=== PATIENT | male | born 1990 | race Caucasian/White ===

== ENCOUNTER 2019-09-16 21:25 | Inpatient (IN) | payer MEDICAID, OTHER ==
[~2019-09-16] VITALS: Ht 182.9 cm; Wt 134.6 kg
[2019-09-16 22:43] LABS: Basophils # (auto) 0 10 ^3/uL (0-0.2); Basophils % (auto) 0.4 % (0.0-2.0); Eosinophils # (auto) 0.3 10 ^3/uL (0-0.8); Eosinophils % (auto) 2.6 % (0.0-7.0); Hematocrit 44.1 % (41.0-53.0); Hemoglobin 14.7 g/dL (13.5-17.5); Lymphocytes # (auto) 1.7 10 ^3/uL (0.4-5.4); Lymphocytes % (auto) 15.8 % (10.0-50.0); Mean Corpuscular Hemoglobin 29.4 pg (28.0-32.0); Mean Corpuscular Hgb Conc. 33.3 g/dL (32.0-36.0); Mean Corpuscular Volume 88.1 fL (80.0-100.0); Monocytes # (auto) 0.8 10 ^3/uL (0-1.3); Monocytes % (auto) 7.7 % (0.0-12.0); Neutrophils # (auto) 7.9 10 ^3/uL (1.6-8.6); Neutrophils % (auto) 73.5 % (37.0-80.0); Nucleated Red Blood Cells % 0.2 %; Platelet Count (auto) 248 10^3/uL (140-450); Red Cell Distribution Width 13.7 % (11.8-14.3); White Blood Cell 10.7 10^3/uL (4.4-10.8)
[2019-09-16 22:58] LABS: INR 1.11 (0.9-1.15); Partial Thromboplastin Time 29.1 sec (23.64-32.05)
[2019-09-16 23:03] LABS: Albumin 3.5 g/dL (3.4-5.0); Anion Gap 6 (5-15); Blood Urea Nitrogen 11 mg/dL (7-18); Calcium 8.4 mg/dL (8.5-10.1); Carbon Dioxide 26 mmol/L (21-32); Chloride 107 mmol/L (98-107); GFR African American 115 mL/min; GFR Non-African American 95 mL/min; Glucose 81 mg/dL (74-106); Magnesium 2.3 mg/dL (1.6-2.6); Potassium 3.6 mmol/L (3.5-5.1); Sodium 139 mmol/L (136-145)
[2019-09-16 23:08] LABS: Alanine Aminotransferase 20 U/L (16-61); Alkaline Phosphatase 86 U/L (45-117); Aspartate Aminotransferase 12 U/L (15-37); Bilirubin, Total 0.5 mg/dL (0.2-1.0); Total Protein 8.1 g/dL (6.4-8.2)
[2019-09-17] MEDS ORDERED: levoFLOXacin 750MG 150 ML IV ONE (00:45)
[2019-09-17] MEDS ORDERED: PROMETHAZINE HCL 6.25 MG/5 ML ORAL SYRUP PO ONE (00:45)
[2019-09-17] MEDS ORDERED: LORazepam 0.5 MG TAB PO PRN (02:45)
[2019-09-17] MEDS ORDERED: ACETAMINOPHEN 325 MG TAB PO PRN (02:45)
[2019-09-17] MEDS ORDERED: ACETAMINOPHEN 500 MG TAB PO PRN (02:45)
[2019-09-17] MEDS ORDERED: HYDROcodone-ACET 5/325MG TAB PO PRN (02:45)
[2019-09-17] MEDS ORDERED: DOCUSATE SOD 100 MG CAP PO PRN (02:45)
[2019-09-17] MEDS ORDERED: ONDANSETRON HCL 4 MG/2 ML VIAL IV PRN (02:45)
[2019-09-17] MEDS ORDERED: MORPHINE SULF INJ 2 MG/ML SYRINGE 1ML IV PRN (02:45)
[2019-09-17 03:40] VITALS: BP 120/55
--- NOTE | 2019-09-17 03:40 | NUR ---
Telemetry admit from [facility] admitted to Telemetry unit. Patient oriented to SINDHU BEE RN primary RN, unit, room, bed, and unit policies regarding patient care and visiting hours. Patient now on continuous telemetry monitoring, tele box # 9 and telemetry reading on arrival to unit is sinus rhythm at 70 beats per minute. Patient placed on bedside oxygen at 8 liters via face mask, weighed by bedscale and encouraged to call if they need something. All questions and concerns addressed, patient verbalized understanding. COVID [address] Bed in lowest locked position, side rails up x2, call light within reach. Will round every hour and as needed and continue to monitor. Addendum: 09/17/19 at 0511 by SINDHU BEE RN RN ADDITION: Levaquin administered as ordered, patient tolerated well. Will continue to monitor.
[2019-09-17 04:38] LABS: Urine Bacteria NONE SEEN /hpf (None Seen); Urine Blood Negative /uL (Negative); Urine Mucus FEW (None Seen); Urine Specific Gravity 1.036 (1.001-1.035); Urine WBC 1 /hpf (0 - 3)
[2019-09-17] MEDS ORDERED: MELA3TAB27 PO (05:07)
[2019-09-17] MEDS ORDERED: CLON-707 PO (05:07)
[2019-09-17] MEDS ORDERED: CLON0.5T10 PO (05:07)
[2019-09-17] MEDS ORDERED: SERT-274 PO (05:07)
[2019-09-17] MEDS: ALBUTEROL SULF HFA 90MCG INH 200DOSE IN SCH ×2 (06:25→14:00)
--- NOTE | 2019-09-17 06:45 | NUR ---
Closing Note Patient lying in bed, eyes closed, respirations even and unlabored, appears asleep. Patient awakens to name and touch. Bed in lowest locked position, side rails up x2, call light within reach. No s/s of distress. Will endorse care to dayshift RN.
--- NOTE | 2019-09-17 08:00 | NUR ---
ASSESSMENT NOTE PT IS ALERT ORIENTED X4, RESTING IN BED COMFORTABLY, PT IS BIG AND TALL, LARGE SOFT ABDOMEN NOTED, ABLE TO VERBALIS HIS DEMANDS, SELF REPOSITION, PAIN 0/10 AT THIS TIME, OXYGEN 8L MASK SAT AT 96%, PAIN 0/10, CALL LIGHT WITHIN REACH
--- NOTE | 2019-09-17 08:30 | NUR ---
DEISY CALLED, SISTER IN [facility], FOLLOWING UP ON PT
[2019-09-17 08:42] VITALS: BP 111/65
--- NOTE | 2019-09-17 09:00 | NUR ---
INCENTIVE SPIROMETER GIVEN TO PT, EDUCATED PT HOW TO USE IT AND WHY, PT WAS ABLE TO DEMONSTRATED BACK
[2019-09-17] MEDS: ENOXAPARIN SOD 40 MG/0.4 ML SYRINGE SC SCH (09:16)
--- NOTE | 2019-09-17 09:30 | NUR ---
DR KRISHNA CALLED FOLLOWING UP ON PT
[2019-09-17] MEDS ORDERED: ASCORBIC ACID 1,000 MG TAB PO SCH (10:00)
[2019-09-17] MEDS ORDERED: DOXYCYCLINE 100 MG TAB/CAP PO SCH (10:00)
[2019-09-17] MEDS ORDERED: ZINC SULFATE 220mg CAP or TAB PO SCH (10:00)
--- NOTE | 2019-09-17 11:02 | NUR ---
PAGE DR ROSENBERG REGARDING COVID TEST IS NEGATIVE
--- NOTE | 2019-09-17 11:05 | NUR ---
PINKY CHARGE NURSE MADE AWARE OF THE TEST RESULTS
--- NOTE | 2019-09-17 11:10 | NUR ---
PATIENT MADE AWARE OF THE TEST RESULTS THAT ITS NEGATIVE, ALSO SPOKE WITH PATIENT'S FATHER MADE AWARE THAT THE RESULTS IS NEGATIVE AND PT WILL BE TRANSFER TO ROOM 272B
--- NOTE | 2019-09-17 11:15 | NUR ---
Report Assumed patient care from LEIGH Verma.
--- NOTE | 2019-09-17 11:16 | NUR ---
REPORT GIVEN TO JOSE RAFAEL ABRAHAM, PT IS GOING TO ROM 272B. CONTINUE CARE
--- NOTE | 2019-09-17 11:58 | NUR ---
PT TRANSFER OUT OF THE COVID UNIT WITH ALL HIS BELONGING BAG AND CELL PHONE, PT AWARE THAT HE IS GOING TO ROOM 272 B
--- NOTE | 2019-09-17 11:58 | NUR ---
TRANSFER PT TO ROOM 272B WITH 8L OXYGEN, NO DISTRESS NOTED, CONTINUE CARE
--- NOTE | 2019-09-17 11:59 | NUR ---
DR KRISHNA IS HERE AWARE OF PATIENT'S TRANSFER WITH STAT ORDERS OF CHEST CT WITHOUT CONTRAST
--- NOTE | 2019-09-17 12:00 | NUR ---
Patient Arrived Patient arrived to unit. Covid negative. Patient currently laying in bed, no signs of distress at this time. Respirations even and unlabored on 8L simple mask. Safety precautions in place. Call light within reach, patient encouraged to call PRN. Will continue to monitor.
--- NOTE | 2019-09-17 12:29 | NUR ---
at Bedside Dr. Calhoun at bedside discussing plan of care with patient. New orders received.
--- NOTE | 2019-09-17 12:39 | NUR ---
Family Spoke with patient's mother, password confirmed. Family notified of room transfer. Reviewed patient home medications with patient's mother.
[2019-09-17 13:00] VITALS: BP 107/71
[2019-09-17] MEDS ORDERED: PROMETHAZINE-DM 5 ML ORAL SYRUP GT PRN (13:00)
[2019-09-17 13:16] LABS: Basophils # (auto) 0 10 ^3/uL (0-0.2); Basophils % (auto) 0.4 % (0.0-2.0); Eosinophils # (auto) 0.2 10 ^3/uL (0-0.8); Eosinophils % (auto) 2.4 % (0.0-7.0); Lymphocytes # (auto) 1.4 10 ^3/uL (0.4-5.4); Lymphocytes % (auto) 15.1 % (10.0-50.0); Mean Corpuscular Hemoglobin 29.2 pg (28.0-32.0); Mean Corpuscular Hgb Conc. 33.2 g/dL (32.0-36.0); Mean Corpuscular Volume 87.7 fL (80.0-100.0); Monocytes # (auto) 0.6 10 ^3/uL (0-1.3); Monocytes % (auto) 6.4 % (0.0-12.0); Neutrophils # (auto) 6.8 10 ^3/uL (1.6-8.6); Neutrophils % (auto) 75.7 % (37.0-80.0); Nucleated Red Blood Cells % 0.1 %; Platelet Count (auto) 235 10^3/uL (140-450); Red Blood Cells 4.78 10^6/uL (4.5-5.90); Red Cell Distribution Width 13.7 % (11.8-14.3)
[2019-09-17] MEDS ORDERED: IOHEXOL 350 MG/ML 100ML IJ ONE (13:23)
[2019-09-17 13:24] LABS: Albumin 3.4 g/dL (3.4-5.0); Magnesium 2.3 mg/dL (1.6-2.6); Potassium 3.9 mmol/L (3.5-5.1)
[2019-09-17 13:29] LABS: Cholesterol 193 mg/dL (< 200); HDL Cholesterol 37 mg/dL (40-59); LDL Cholesterol 143 mg/dL (< 100); Triglycerides 152 mg/dL (< 150)
[2019-09-17 13:33] LABS: BUN/Creatinine Ratio 10.5; Bilirubin, Total 0.5 mg/dL (0.2-1.0); CRP High Sensitivity 6.48 mg/dL (< 0.3); Total Protein 7.6 g/dL (6.4-8.2)
--- NOTE | 2019-09-17 13:35 | NUR ---
Off Unit Patient off unit for CT.
--- NOTE | 2019-09-17 13:49 | NUR ---
Patient Returned Patient returned to unit. No signs of distress at this time. Respirations even and unlabored. Will continue to monitor.
--- NOTE | 2019-09-17 13:59 | NUR ---
Returned Tele Returned tele box #9, tele security monitor aware.
--- NOTE | 2019-09-17 14:40 | NUR ---
Called For Tele Recalled for tele monitor for new tele box. Addendum: 09/17/19 at 1441 by JOSE RAFAEL REBOLLAR RN RN Spoke with vargas Cuevas tele box to be sent.
[2019-09-17 17:00] VITALS: BP 105/62
--- NOTE | 2019-09-17 17:30 | NUR ---
Family Spoke with sister, May, regarding update on patient status. Password confirmed.
[2019-09-17] MEDS ORDERED: PIPERACILLIN-TAZO 4.5GM 100 ML IV ONE (18:15)
--- NOTE | 2019-09-17 18:16 | NUR ---
Called Dietary Called dietary requesting new dinner tray. Patient states he is hungry but does not like gravy or cooked vegetables.
--- NOTE | 2019-09-17 18:35 | NUR ---
Lab Notified lab of sputum culture. equipment maint tech aware.
--- NOTE | 2019-09-17 19:30 | NUR ---
Opening Shift Note Assumed care of patient, awake and alert. A&Ox4. Patient laying down watching TV. No S/S of distress/SOB or pain. Safety measures maintained by keeping the bed locked in lowest position, 2 side rails up, personal items and call light within reach. Instructed on POC and to call for assist PRN, will continue to monitor for changes Q1hr and PRN.
[2019-09-17 22:00] VITALS: BP 101/62
[2019-09-17] MEDS: PIPERACILLIN-TAZOB 3.375GM 100 ML IV SCH (23:32)
--- NOTE | 2019-09-18 02:00 | NUR ---
Family Patient's mother updated on patient status. Password confirmed.
[2019-09-18 05:00] VITALS: BP 112/71
[2019-09-18] MEDS: PIPERACILLIN-TAZOB 3.375GM 100 ML IV SCH ×2 (05:25→12:06)
[2019-09-18 06:29] LABS: Basophils # (auto) 0 10 ^3/uL (0-0.2); Basophils % (auto) 0.6 % (0.0-2.0); Eosinophils # (auto) 0.3 10 ^3/uL (0-0.8); Hematocrit 42.4 % (41.0-53.0); Hemoglobin 14.2 g/dL (13.5-17.5); Lymphocytes # (auto) 1.6 10 ^3/uL (0.4-5.4); Lymphocytes % (auto) 20.4 % (10.0-50.0); Mean Corpuscular Hemoglobin 29.3 pg (28.0-32.0); Mean Corpuscular Hgb Conc. 33.3 g/dL (32.0-36.0); Mean Corpuscular Volume 87.8 fL (80.0-100.0); Monocytes # (auto) 0.5 10 ^3/uL (0-1.3); Monocytes % (auto) 6.8 % (0.0-12.0); Neutrophils # (auto) 5.5 10 ^3/uL (1.6-8.6); Neutrophils % (auto) 68.2 % (37.0-80.0); Nucleated Red Blood Cells % 0.2 %; Platelet Count (auto) 230 10^3/uL (140-450); Red Blood Cells 4.84 10^6/uL (4.5-5.90); Red Cell Distribution Width 13.4 % (11.8-14.3); White Blood Cell 8.1 10^3/uL (4.4-10.8)
[2019-09-18 06:49] LABS: Potassium 3.7 mmol/L (3.5-5.1)
[2019-09-18 06:55] LABS: Albumin 3.3 g/dL (3.4-5.0); BUN/Creatinine Ratio 10.4; Bilirubin, Total 0.5 mg/dL (0.2-1.0); Total Protein 7.7 g/dL (6.4-8.2)
--- NOTE | 2019-09-18 07:35 | NUR ---
Opening Shift Note Assumed care of patient, awake and alert.No S/S of distress/SOB or pain. Patient updated on POC and instructed to call for assistance as needed, patient verbalized understanding. Bed locked in lowest position, side rails up x2, call light within reach, safety measures in place. Will continue to monitor for changes Q1hr and PRN.
[2019-09-18 09:00] VITALS: BP 106/64
[2019-09-18] MEDS: levoFLOXacin 750MG 150 ML IV SCH (09:54)
[2019-09-18] MEDS: ENOXAPARIN SOD 40 MG/0.4 ML SYRINGE SC SCH (09:54)
[2019-09-18] MEDS ORDERED: FUROSEMIDE 20 MG/2 ML VIAL IV ONE (12:30)
[2019-09-18] MEDS ORDERED: CHOLECALCIFEROL (VITD3) 2,000 UNIT CAP PO ONE (12:30)
[2019-09-18] MEDS ORDERED: SODIUM CHLORIDE 0.9% 1,000 ML IV ONE (12:45)
[2019-09-18 13:00] VITALS: BP_SYST 94; BP_SYST 97; BP_DIAS 54; BP_DIAS 58
--- NOTE | 2019-09-18 13:00 | NUR ---
CHANELLE RESULTS NOW AVAILABLE IN [employer] AND REPORTED TO
--- NOTE | 2019-09-18 15:30 | NUR ---
[facility] POSITIVE IN [facility]. WILL UPDATE MD LEVIN.
[2019-09-18] MEDS ORDERED: methylPREDNISolone SOD SUCC 40 MG/ML VL IV ONE (15:45)
--- NOTE | 2019-09-18 16:28 | NUR ---
INCENTIVE SPIROMETER PATIENT PROVIDED WITH INCENTIVE SPIROMETER AND INSTRUCTED ON PROPER USE, INSTRUCTED TO USE Q1HR AND PRN. PATIENT PERFORMED DEMONSTRATION. WILL CONTINUE TO MONITOR.
[2019-09-18] MEDS: LINEZOLID 600MG TABLET PO SCH ×2 (16:30→22:24)
[2019-09-18 17:00] VITALS: BP 113/66
[2019-09-18] MEDS: ALBUTEROL SULF 2.5 MG/0.5ML(0.5%) NEB SOLN NEB SCH (19:10)
--- NOTE | 2019-09-18 19:20 | NUR ---
Opening Shift Note Assumed care of patient, awake and alert. Patient sitting up in bed. A&Ox4. Patient on 15L oxymizer. No S/S of distress/SOB or pain. Safety measures maintained by keeping the bed locked in lowest position, 2 side rails up, personal items and call light within reach. Instructed on POC and to call for assist PRN, will continue to monitor for changes Q1hr and PRN.
--- NOTE | 2019-09-18 19:21 | NUR ---
Respiratory note: CHANGED PT TO 15L OXYMIZER AT THIS TIME
[2019-09-18 19:48] VITALS: BP 113/66
[2019-09-18] MEDS ORDERED: methylPREDNISolone SOD SUCC 40 MG/ML VL IV SCH (22:00)
[2019-09-18] MEDS: MUPIROCIN 2% OINT 15gm or 22gm EACHNOSTRI SCH (22:23)
[2019-09-18 22:26] VITALS: BP 130/61
[2019-09-19 05:22] VITALS: BP 104/55
[2019-09-19 06:07] LABS: Basophils # (auto) 0 10 ^3/uL (0-0.2); Basophils % (auto) 0.1 % (0.0-2.0); Eosinophils # (auto) 0 10 ^3/uL (0-0.8); Eosinophils % (auto) 0.1 % (0.0-7.0); Hematocrit 43.9 % (41.0-53.0); Hemoglobin 14.6 g/dL (13.5-17.5); Lymphocytes % (auto) 8.7 % (10.0-50.0); Mean Corpuscular Hemoglobin 29.2 pg (28.0-32.0); Mean Corpuscular Hgb Conc. 33.3 g/dL (32.0-36.0); Mean Corpuscular Volume 87.5 fL (80.0-100.0); Monocytes # (auto) 0.3 10 ^3/uL (0-1.3); Monocytes % (auto) 2.4 % (0.0-12.0); Neutrophils % (auto) 88.7 % (37.0-80.0); Nucleated Red Blood Cells % 0.1 %; Platelet Count (auto) 284 10^3/uL (140-450); Red Blood Cells 5.01 10^6/uL (4.5-5.90); Red Cell Distribution Width 13.1 % (11.8-14.3); White Blood Cell 11.3 10^3/uL (4.4-10.8)
[2019-09-19] MEDS: ALBUTEROL SULF 2.5 MG/0.5ML(0.5%) NEB SOLN NEB SCH ×3 (06:08→19:27)
[2019-09-19 06:23] LABS: Calcium 8.8 mg/dL (8.5-10.1)
--- NOTE | 2019-09-19 07:25 | NUR ---
Opening Shift Note Assumed care of patient, awake and alert. No S/S of distress/SOB or pain. Patient updated on POC and instructed to call for assistance as needed, patient verbalized understanding. Bed locked in lowest position, side rails up x2, call light within reach, safety measures in place. Will continue to monitor for changes Q1hr and PRN.
[2019-09-19 09:00] VITALS: BP 112/59
[2019-09-19] MEDS: LINEZOLID 600MG TABLET PO SCH ×2 (09:09→21:23)
[2019-09-19] MEDS: levoFLOXacin 750MG 150 ML IV SCH (09:09)
[2019-09-19] MEDS: ENOXAPARIN SOD 40 MG/0.4 ML SYRINGE SC SCH (09:10)
[2019-09-19] MEDS: MUPIROCIN 2% OINT 15gm or 22gm EACHNOSTRI SCH ×2 (09:10→21:23)
[2019-09-19] MEDS: CHOLECALCIFEROL (VITD3) 2,000 UNIT CAP PO SCH (09:10)
[2019-09-19] MEDS: predniSONE 20 MG TAB PO SCH (09:17)
[2019-09-19] MEDS ORDERED: FUROSEMIDE 20 MG/2 ML VIAL IV SCH (10:00)
--- NOTE | 2019-09-19 10:00 | NUR ---
FAMILY AT BEDSIDE.
[2019-09-19 13:00] VITALS: BP 100/51
[2019-09-19] MEDS ORDERED: FUROSEMIDE 20 MG/2 ML VIAL IV ONE (14:00)
[2019-09-19] MEDS ORDERED: PIPERACILLIN-TAZO 4.5GM 100 ML IV ONE (14:15)
[2019-09-19 17:00] VITALS: BP 116/73
--- NOTE | 2019-09-19 19:30 | NUR ---
Opening Shift Note Assumed care of patient, awake and alert. A&Ox4. Patient laying in bed. No S/S of distress/SOB or pain. Safety measures maintained by keeping the bed locked in lowest position, 2 side rails up, personal items and call light within reach. Instructed on POC and to call for assist PRN, will continue to monitor for changes Q1hr and PRN.
--- NOTE | 2019-09-19 21:49 | NUR ---
SPOKE WITH PATIENT'S FAMILY MEMBER Spoke with patient's mom. Password was obtained. All questions/ concerns were answered at this time.
[2019-09-19 22:00] VITALS: BP 122/67
[2019-09-20] MEDS: PIPERACILLIN-TAZO 4.5GM 100 ML IV SCH ×3 (05:21→21:48)
[2019-09-20 06:00] VITALS: BP 128/61
[2019-09-20] MEDS: ALBUTEROL SULF 2.5 MG/0.5ML(0.5%) NEB SOLN NEB SCH ×3 (07:12→18:49)
--- NOTE | 2019-09-20 07:12 | NUR ---
RT NOTE: PT RECEIVED ON 15L OXYMIZER WITH SPO2 95%. FLOW DECREASED TO 10L. AT 8L SPO2 DROPPED TO 91%. NO SIGNS OF DISTRESS NOTED AT THIS TIME. PT REFUSED TX. WILL CONTINUE TO MONITOR.
--- NOTE | 2019-09-20 07:25 | NUR ---
Opening Shift Note Assumed care of patient, resting with eyes closed. Respirations are even and unlabored on 10L Oxymizer. No S/S of distress/SOB, no pain noted. Bed locked in lowest position, side rails up x2, call light within reach, fall precautions in place. Will continue to monitor for changes Q1hr and PRN.
[2019-09-20 08:00] VITALS: BP 117/67
[2019-09-20] MEDS ORDERED: POTASSIUM CHL 20 Meq TABLET PO ONE (08:45)
[2019-09-20] MEDS: MUPIROCIN 2% OINT 15gm or 22gm EACHNOSTRI SCH ×2 (08:52→21:48)
[2019-09-20] MEDS: ENOXAPARIN SOD 40 MG/0.4 ML SYRINGE SC SCH (08:52)
[2019-09-20] MEDS: CHOLECALCIFEROL (VITD3) 2,000 UNIT CAP PO SCH (08:53)
[2019-09-20] MEDS: LINEZOLID 600MG TABLET PO SCH ×2 (08:53→21:48)
[2019-09-20] MEDS: FUROSEMIDE 20 MG/2 ML VIAL IV SCH (08:53)
[2019-09-20] MEDS: predniSONE 20 MG TAB PO SCH (08:53)
[2019-09-20] MEDS: POTASSIUM CHLORIDE 8 MEQ TAB PO SCH (08:59)
[2019-09-20 12:00] VITALS: BP 125/77
--- NOTE | 2019-09-20 14:37 | NUR ---
Nutrition Assessment Notes please see attached link for complete assessment. Est Energy needs ABW 107 [id number] kcals (17-20 kcal/kgABW), Est Protein needs: 107-117 gms/day (1.0-1.1 gm/kgBW). Will continue to monitor and reassess prn. Addendum: 09/20/19 at [address] Amended: Links added.
[2019-09-20 17:02] VITALS: BP 125/79
--- NOTE | 2019-09-20 19:30 | NUR ---
RECEIVED PATIENT FROM DAY SHIFT RN. PATIENT RESTING IN BED. NO S/S OF DISTRESS NOTED. DENIED PAIN FOR NOW. POC INSTRUCTED AND ENCOURAGED PATIENT TO CALL FOR SUCTION OPERATOR IF NEEDED. BED IN LOWEST POSITION WITH SIDE RAILS UP X 2. CALL YOUNGBLOOD WITHIN REACH. CONTINUE TO MONITOR FOR CHANGES Q1H AND PRN.
[2019-09-20 22:00] VITALS: BP 120/73
--- NOTE | 2019-09-20 22:07 | NUR ---
PATIENT WALKED TO BATHROOM WITH PORTABLE OXYGEN TANK, NO S/S OF DISTRESS NOTED. CONTINUE CARE.
--- NOTE | 2019-09-21 03:07 | NUR ---
PATIENT SLEEPING. NO S/S OF DISTRESS NOTED. CONTINUE CARE.
[2019-09-21 05:00] VITALS: BP 123/69
[2019-09-21] MEDS: PIPERACILLIN-TAZO 4.5GM 100 ML IV SCH ×3 (05:45→21:59)
[2019-09-21 06:32] LABS: Basophils # (auto) 0 10 ^3/uL (0-0.2); Basophils % (auto) 0.5 % (0.0-2.0); Eosinophils # (auto) 0.2 10 ^3/uL (0-0.8); Eosinophils % (auto) 2.3 % (0.0-7.0); Hematocrit 42.5 % (41.0-53.0); Hemoglobin 14.1 g/dL (13.5-17.5); Lymphocytes # (auto) 2.4 10 ^3/uL (0.4-5.4); Lymphocytes % (auto) 26.3 % (10.0-50.0); Mean Corpuscular Hemoglobin 29.3 pg (28.0-32.0); Mean Corpuscular Hgb Conc. 33.1 g/dL (32.0-36.0); Mean Corpuscular Volume 88.5 fL (80.0-100.0); Monocytes # (auto) 0.6 10 ^3/uL (0-1.3); Monocytes % (auto) 6.7 % (0.0-12.0); Neutrophils # (auto) 5.8 10 ^3/uL (1.6-8.6); Neutrophils % (auto) 64.2 % (37.0-80.0); Nucleated Red Blood Cells % 0.1 %; Platelet Count (auto) 256 10^3/uL (140-450); Red Cell Distribution Width 13.2 % (11.8-14.3)
[2019-09-21 06:46] LABS: Potassium 3.8 mmol/L (3.5-5.1)
[2019-09-21] MEDS: ALBUTEROL SULF 2.5 MG/0.5ML(0.5%) NEB SOLN NEB SCH ×3 (06:52→18:35)
[2019-09-21 06:57] LABS: Albumin 3.2 g/dL (3.4-5.0); BUN/Creatinine Ratio 15.1; Bilirubin, Total 0.2 mg/dL (0.2-1.0); Calcium 8.6 mg/dL (8.5-10.1); Total Protein 7.5 g/dL (6.4-8.2)
--- NOTE | 2019-09-21 07:02 | NUR ---
Titrated O2 down to 8lpm oxymizer, pt tolerating changes maintaining SPO2 95%. No s/s of distress.
[2019-09-21 09:00] VITALS: BP 100/60
[2019-09-21] MEDS: FUROSEMIDE 20 MG/2 ML VIAL IV SCH (10:00)
[2019-09-21] MEDS: ENOXAPARIN SOD 40 MG/0.4 ML SYRINGE SC SCH ×2 (10:00→10:13)
[2019-09-21] MEDS: MUPIROCIN 2% OINT 15gm or 22gm EACHNOSTRI SCH ×2 (10:11→21:58)
[2019-09-21] MEDS: CHOLECALCIFEROL (VITD3) 2,000 UNIT CAP PO SCH (10:12)
[2019-09-21] MEDS: POTASSIUM CHLORIDE 8 MEQ TAB PO SCH (10:12)
[2019-09-21] MEDS: predniSONE 20 MG TAB PO SCH (10:13)
[2019-09-21] MEDS: LINEZOLID 600MG TABLET PO SCH ×2 (10:13→21:58)
--- NOTE | 2019-09-21 11:00 | NUR ---
TURNED OXYGEN TO 6 LITERS VIA OXYMIZER SATURATION 96%
--- NOTE | 2019-09-21 12:40 | NUR ---
Administered scheduled 1200 medneb tx, no adverse reactions noted. Titrated oxymizer to 5lpm, SPO2 95%, no s/s of distress.
[2019-09-21 13:00] VITALS: BP 112/67
[2019-09-21 17:00] VITALS: BP 114/69
[2019-09-21 17:20] VITALS: BP 112/67
--- NOTE | 2019-09-21 18:36 | NUR ---
RT NOTE PT WAS SEEN BY RT FOR HHN TX. [T TOLERATES WELL VIA MASK. NO ADVERSE REACTION NOTED. RT HELPED PT WITH OXYMIZER FOR BETTER FIT. CONT ORDERED. POX 95% Addendum: 09/21/19 at 1838 by Dominique Frazier RT Amended: Links added.
--- NOTE | 2019-09-21 19:25 | NUR ---
RECEIVED PATIENT FROM DAY SHIFT RN. PATIENT RESTING IN BED. NO S/S OF DISTRESS NOTED. DENIED PAIN FOR NOW. POC INSTRUCTED AND ENCOURAGED PATIENT TO CALL FOR RAILWAY SIGNAL OPERATOR IF NEEDED. BED IN LOWEST POSITION WITH SIDE RAILS UP X 2. CALL YOUNGBLOOD WITHIN REACH. CONTINUE TO MONITOR FOR CHANGES Q1H AND PRN.
--- NOTE | 2019-09-21 20:05 | NUR ---
PATIENT LEFT NOSE BLEEDING, SAT PATIENT UPRIGHT AND ICE PACK APPLIED. CONTINUE TO MONITOR.
--- NOTE | 2019-09-21 20:30 | NUR ---
NOSE BLEED STOPPED. PATIENT DENIED DIZZINESS, NO S/S OF DISTRESS NOTED. PATIENT IS ON 4L/OXYMIZER WITH O2 SAT 92%. CONTINUE TO MONITOR.
[2019-09-21 21:55] VITALS: BP 130/73
--- NOTE | 2019-09-21 22:11 | NUR ---
PATIENT WALKED TO BATHROOM WITH PORTABLE OXYGEN TANK, NO S/S OF DISTRESS NOTED. CONTINUE CARE.
--- NOTE | 2019-09-22 02:32 | NUR ---
PATIENT SLEEPING. NO S/S OF DISTRESS NOTED. CONTINUE CARE.
--- NOTE | 2019-09-22 04:32 | NUR ---
REPORTED TO CHARGE NURSE MERVAT, PATIENT SHOULD BE ON DROPLET PRECAUTION FOR MRSA IN SPUTUM.
[2019-09-22 05:00] VITALS: BP 114/52
[2019-09-22] MEDS: PIPERACILLIN-TAZO 4.5GM 100 ML IV SCH ×3 (06:20→22:12)
[2019-09-22] MEDS: ALBUTEROL SULF 2.5 MG/0.5ML(0.5%) NEB SOLN NEB SCH ×3 (07:10→18:45)
[2019-09-22 09:26] VITALS: BP 121/75
[2019-09-22] MEDS: predniSONE 20 MG TAB PO SCH (09:36)
[2019-09-22] MEDS: POTASSIUM CHLORIDE 8 MEQ TAB PO SCH (09:36)
[2019-09-22] MEDS: LINEZOLID 600MG TABLET PO SCH ×2 (09:36→22:12)
[2019-09-22] MEDS: CHOLECALCIFEROL (VITD3) 2,000 UNIT CAP PO SCH (09:36)
[2019-09-22] MEDS: MUPIROCIN 2% OINT 15gm or 22gm EACHNOSTRI SCH ×2 (09:37→22:19)
[2019-09-22] MEDS: ENOXAPARIN SOD 40 MG/0.4 ML SYRINGE SC SCH (09:37)
[2019-09-22] MEDS: FUROSEMIDE 20 MG/2 ML VIAL IV SCH (11:01)
[2019-09-22 13:00] VITALS: BP 99/50
--- NOTE | 2019-09-22 14:02 | NUR ---
PATIENT HAS BEEN ON ROOM AIR FOR 45 MINUTES DENIES ANY SHORTNESS OF BREATH OXYGEN SATURATION 94%. DR LEVIN NOTIFIED. SHE WANTS AN ABG ON ROOM AIR TO SEE IF PATIENT NEEDS HOME OXYGEN.
--- NOTE | 2019-09-22 14:30 | NUR ---
assessment Patient is a 29 year old male who is autistic. Per patients father Santiago Serna prior to admission patient lived home with him and his and needed assistance. Patient to return home with parents on discharge. Santiago informed me patient cares for his own ADL's. Per Santiago he and his cook, clean, and make decisions for patient. Santiago drove patient to ER for fever and shortness of breath and patient was admitted. Santiago is concerned that patient may need home oxygen. I just checked ABG and patients p02 is 69.2. Patient does not qualify for home oxygen at this time. Patient has no other post discharge needs identified. Santiago Serna verbalized understanding and agreed to discharge plan home. Addendum: 09/22/19 at 1435 by Lyla FERNANDEZ Amended: Links added.
--- NOTE | 2019-09-22 16:24 | NUR ---
report received from Imelda.
[2019-09-22 17:02] VITALS: BP 119/84
--- NOTE | 2019-09-22 19:30 | NUR ---
RECEIVED PATIENT FROM DAY SHIFT RN. PATIENT RESTING IN BED. NO S/S OF DISTRESS NOTED. DENIED PAIN FOR NOW. PATIENT IS ON RA, O2 SAT 92%. DENIED NOSE BLEED TODAY. POC INSTRUCTED AND ENCOURAGED PATIENT TO CALL FOR RAP ARTIST IF NEEDED. BED IN LOWEST POSITION WITH SIDE RAILS UP X 2. CALL YOUNGBLOOD WITHIN REACH. CONTINUE TO MONITOR FOR CHANGES Q1H AND PRN.
[2019-09-22 22:00] VITALS: BP 137/94
--- NOTE | 2019-09-23 01:33 | NUR ---
PATIENT'S MOM CALLED, PASSWORD VERIFIED. UPDATED ON PATIENT'S CURRENT SITUATION. ALL QUESTIONS AND CONCERNED ADDRESSED. CONTINUE TO MONITOR.
--- NOTE | 2019-09-23 04:43 | NUR ---
PATIENT SLEEPING. NO S/S OF DISTRESS NOTED. CONTINUE CARE.
[2019-09-23 05:00] VITALS: BP 99/61
[2019-09-23] MEDS: PIPERACILLIN-TAZO 4.5GM 100 ML IV SCH (06:12)
[2019-09-23] MEDS ORDERED: ACETAMINOPHEN 325 MG TAB PO PRN (07:15)
--- NOTE | 2019-09-23 08:00 | NUR ---
OPENING SHIFT NOTE ASSUMED CARE OF PATIENT AWAKE AND ALERT. NO S/S OF DISTRESS NOTED OR COMPLAINTS OF PAIN. PATIENT UPDATED ON POC FOR THE DAY AND ALL QUESTIONS ANSWERED. BED IS IN LOWEST, LOCKED POSITION WITH SIDE RAILS UP X2 AND CALL LIGHT WITHIN REACH. WILL CONTINUE TO MONITOR Q1H AND PRN.
[2019-09-23] MEDS: ALBUTEROL SULF 2.5 MG/0.5ML(0.5%) NEB SOLN NEB SCH (08:42)
[2019-09-23 09:00] VITALS: BP 112/64
[2019-09-23] MEDS ORDERED: CLIN300C8 PO (10:01)
[2019-09-23] MEDS: MUPIROCIN 2% OINT 15gm or 22gm EACHNOSTRI SCH (10:01)
[2019-09-23] MEDS ORDERED: MUPI2OIN2 EACHNOSTRI (10:01)
[2019-09-23] MEDS: POTASSIUM CHLORIDE 8 MEQ TAB PO SCH (10:02)
[2019-09-23] MEDS: FUROSEMIDE 20 MG/2 ML VIAL IV SCH (10:02)
[2019-09-23] MEDS: CHOLECALCIFEROL (VITD3) 2,000 UNIT CAP PO SCH (10:02)
[2019-09-23] MEDS: predniSONE 20 MG TAB PO SCH (10:02)
[2019-09-23] MEDS: LINEZOLID 600MG TABLET PO SCH (10:02)
[2019-09-23] MEDS ORDERED: AMOX500T86 PO (10:03)
[2019-09-23] MEDS: ENOXAPARIN SOD 40 MG/0.4 ML SYRINGE SC SCH (10:03)
[2019-09-23] MEDS ORDERED: PRED-158 PO (10:04)
--- NOTE | 2019-09-23 13:50 | NUR ---
Discharge instructions given as ordered. Encourage to follow up with PMD as instructed. All questions and concerns addressed. Patient verbalized understanding. IV removed with catheter intact, pressure dressing applied. Patient taken to vehicle via wheelchair with all personal belongings, accompanied by staff. No distress noted at time of departure.
== END 2019-09-23 13:30 | disposition home or self-care (01) | DRG 720 ==
LOC: ER 21:25 → TELE 21:26 → TELE-EAST 09-17 05:25 → TELE-WESTW 09-17 11:57 → WEST WING 09-23 05:30
PROVIDERS: ADMIT Hospitalist; ATTEND Internal Medicine Nephrology
DX: A41.9 Sepsis, unspecified organism (principal); J96.01 Acute respiratory failure with hypoxia; J20.8 Acute bronchitis due to other specified organisms; F84.5 Asperger's syndrome; E66.01 Morbid (severe) obesity due to excess calories; Z68.41 Body mass index [BMI] 40.0-44.9, adult; R65.20 Severe sepsis without septic shock; J15.212 Pneumonia due to Methicillin resistant Staphylococcus aureus; Z79.899 Other long term (current) drug therapy; Z20.828 Contact with and (suspected) exposure to other viral communicable diseases; J15.6 Pneumonia due to other Gram-negative bacteria
CPT/HCPCS: 36415; 36600; 71045; 71046; 71275; 80048; 80053; 80061; 81001; 82306; 82728; 82805; 83605; 83615; 83735; 83880; 84443; 84484; 85025; 85379; 85610; 85730; 86141; 86738; 87040; 87070; 87077; 87081; 87186; 87205; 87278; 93306; 94640; 96365; G0378; J1956; J2543